=== PATIENT | male | born 1970 | race African-American/Black ===

== ENCOUNTER 2022-11-02 10:26 | Emergency (ER) | payer MEDICAID ==
[~2022-11-02] VITALS: Ht 172.7 cm; Wt 146.0 kg
[2022-11-02 14:03] LABS: HEMATOCRIT. 41.1 % (42.0-52.0); HEMOGLOBIN. 12.5 g/dL (14.0-18.0); MEAN CORPUSCULAR HEMOGLOBIN 32.2 pg (28.0-32.0); MEAN PLATELET VOLUME 8.8 fl (7.4-10.4); PLATELET 80 x1000/uL (130-400); RED BLOOD CELL COUNT 3.88 mill/uL (4.7-6.1); RED CELL DISTRIBUTION WIDTH 19.9 % (11.6-14.6)
[2022-11-02 14:25] LABS: PLATELET ESTIMATE DECREASED
[2022-11-02 15:57] LABS: INR 1.2; PROTHROMBIN TIME 12.9 sec (9.6-11.0)
[2022-11-02 20:16] VITALS: BP 126/60
== END 2022-11-02 20:17 | disposition home or self-care (01) ==
LOC: ER 10:26
DX: T82.838A Hemorrhage due to vascular prosthetic devices, implants and grafts, initial encounter (principal); X58.XXXA Exposure to other specified factors, initial encounter; I10 Essential (primary) hypertension; Z99.2 Dependence on renal dialysis
CPT/HCPCS: 36415; 80048; 85025; 86850; 86900; 99285